=== PATIENT | female | born 1975 | race Caucasian/White ===

== ENCOUNTER 2020-07-25 14:17 | Inpatient (IN) | payer BC ==
[~2020-07-25] VITALS: Ht 154.9 cm; Wt 61.2 kg
[~2020-07-25 14:17] MED LIST: FLO4 PO; HYDROCODONE/ACE1 TA2 PO; LAC PO; MAC100 PO
[2020-07-25 14:30] VITALS: Ht 154.9 cm; Wt 61.2 kg
[2020-07-25 16:51] LABS: CALCIUM 9.9 mg/dL (8.5-10.1); CARBON DIOXIDE 25.8 mmol/L (21-32); CHLORIDE SERUM 102 mmol/L (98-107); CREATININE SERUM 0.8 mg/dL (0.6-1.0); GFR1 > 60 mL/min; GLUCOSE SERUM 101 mg/dL (74-106); POTASSIUM SERUM 4.2 mmol/L (3.5-5.1); SODIUM SERUM 138 mmol/L (136-145)
[2020-07-25 16:52] LABS: BASOPHIL % 0.2 % (0-2); PLATELET COUNT 338 x10^3mcL (130-400); RED CELL DISTRIBUTION WIDTH 12.3 % (11.5-14.5)
[2020-07-25 16:57] LABS: ALBUMIN 3.6 g/dL (3.4-5.0); ALKALINE PHOSPHATASE 125 U/L (46-116); ALT/SGPT 70 U/L (14-59); AST/SGOT 34 U/L (15-37); BILIRUBIN TOTAL 0.2 mg/dL (0.20-1.00); TOTAL PROTEIN, SERUM 8.2 g/dL (6.4-8.2)
--- NOTE | 2020-07-25 18:30 | NUR ---
PT REPORTING PRESSURE LIKE PELVIC PAIN SINCE YESTERDAY AFTERNOON, INCREASE PAIN WITH MOVEMENT AND WALKING. PT DENIES VAGINAL BLEEDING OR DISCHARGE. STATES SHE IS NAUSEATED WHEN THE PAIN COMES. AND DENIES FEVER BUT STATES SHE IS HAVING PAIN WITH URINATION AND FREQUNECY. PT IN POC AND I WILL CONTINUE TO MONITOR.
--- NOTE | 2020-07-25 18:40 | NUR ---
US AT BEDSIDE. PT MEDICATED PER ORDER.
--- NOTE | 2020-07-25 19:15 | NUR ---
REPORT RECEIVED BY TRICIA ZARAGOZA TO ASSUME CARE OF PT.
--- NOTE | 2020-07-25 20:12 | NUR ---
PT MEDICATED WITH NS PER MD ORDER. PT VERBALIZED UNDERSTANDING OF MEDICATION PRIOR TO ADMINISTRATION. CALL LIGHT IN REACH. PT IS AA&OX4, RESP E/U, NAD NOTED. COMPLAINING OF NO PAIN AT THIS TIME.
--- NOTE | 2020-07-25 21:18 | NUR ---
PT RESTING IN GURNEY, CALL LIGHT IN REACH, RESP E/U, NAD NOTED, COMPLAINING OF NO PAIN AT THIS TIME.
--- NOTE | 2020-07-25 22:53 | NUR ---
CHAPERONED DR VIRGEN WITH PELVIC EXAM. PT TOLERATED WELL. PT RESTING IN GURNEY, AA&OX4, RESP E/U, NAD NOTED. CALL LIGHT IN REACH.
--- NOTE | 2020-07-25 23:17 | NUR ---
PT MEDICATED PER MD ORDER. PT VERBALIZED UNDERSTANDING OF MEDICATION PRIOR TO ADMINISTRATION. CALL LIGHT IN REACH.
--- NOTE | 2020-07-25 23:37 | NUR ---
XRAY AT BEDSIDE.
--- NOTE | 2020-07-26 00:05 | NUR ---
PT DENIES ANY HOME MEDICATIONS.
--- NOTE | 2020-07-26 00:05 | NUR ---
PT MEDICATED PER MD ORDER. PT VERBALIZED UNDERSTANDING OF MEDICATION PRIOR TO ADMINISTRATION. CALL LIGHT IN REACH. PT IS AA&OX4, RESP E/U.
--- NOTE | 2020-07-26 00:30 | NUR ---
PATIENT REPORTING NAUSEA, NO ACTIVE VOMITING NOTED.
[2020-07-26 00:43] LABS: AMYLASE 54 U/L (25-115); LIPASE 73 IU/L (73-393)
--- NOTE | 2020-07-26 01:22 | NUR ---
PT AMBULATED TO RESTROOM WITH STEADY GAIT AT THIS TIME. RESP E/U.
--- NOTE | 2020-07-26 04:03 | NUR ---
PATIENT RESTING IN GURNEY, RESP E/U, AAOX4, NAD NOTED. CALL LIGHT IN REACH.
--- NOTE | 2020-07-26 05:11 | NUR ---
PT AMBULATED TO RESTROOM AND BACK WITH STEADY GAIT, COMPLAINING OF NO PAIN, AA&OX4, RESP E/U, NAD NOTED.
[2020-07-26 06:42] LABS: BASOPHIL % 0.1 % (0-2); CARBON DIOXIDE 26.2 mmol/L (21-32); CHLORIDE SERUM 107 mmol/L (98-107); CREATININE SERUM 0.6 mg/dL (0.6-1.0); GFR1 > 60 mL/min; GLUCOSE SERUM 91 mg/dL (74-106); MAGNESIUM 2.3 mg/dL (1.8-2.4); PHOSPHOROUS 2.7 mg/dL (2.5-4.9); PLATELET COUNT 310 x10^3mcL (130-400); POTASSIUM SERUM 4.8 mmol/L (3.5-5.1); RED CELL DISTRIBUTION WIDTH 12.4 % (11.5-14.5); SODIUM SERUM 138 mmol/L (136-145)
--- NOTE | 2020-07-26 06:43 | NUR ---
PT RESTING IN DANYEL [facility]IE&WILL, RESP E/U.
[2020-07-26 06:50] LABS: microscopic required? YES; urine erythrocyte 2+ (NEGATIVE)
--- NOTE | 2020-07-26 07:12 | NUR ---
RECEIVED REPORT FORM AZIZA ZARAGOZA, I WILL ASSUME FURTHER CARE OF THIS PATIENT.
--- NOTE | 2020-07-26 07:30 | NUR ---
PT IN POSITION OF COMFORT LAYING IN ER [facility]. PT REPORTED "IM NOT IN PAIN I JUST HAVE SOME CRAMPING HERE AND THERE." PT IS AAOX4, NO DISTRESS NOTED, RESP E/U. SKIN INTACT PINK WARM AND DRY. PT HAS NS 0.9% NO ADDS INFUSING AT 150ML/HR AT THIS TIME. IV IS PATENT, NO INFILTRATION OR PAIN NOTED TO IV SITE. WILL CONT TO MONITOR.
--- NOTE | 2020-07-26 08:21 | NUR ---
ATTEMPTED TO CALL REPORT TO SHLOMO ON TELE UNIT, NOT AVAILBLE PER MT WILL HAVE HER CALL BACK
--- NOTE | 2020-07-26 08:42 | NUR ---
REPORT GIVEN TO SHLOMO RN ON TELE UNIT FOR CONTINUITY OF CARE.
--- NOTE | 2020-07-26 09:30 | NUR ---
RECEIVED REPORT FROM ER NURSE AHSAN. PATIENT ARRIVED TO UNIT VIA GURNEY, ACCOMPANIED BY NURSE. PATIENT IS AAO TIMES 4. SPEECH CLEAR. MED-SURG. RESPIRATIONS EVEN AND UL ON RA. LUNGS CTAB. BS ACTIVE x4, SOFT AND NON-TENDER. DENIES N/V/D. DENIES PAIN AT THIS TIME, BUT C/O INTERMITTENT CRAMPS TO RLQ. VOIDS FREELY. AMBULATORY WITHOUT ASSISTANCE. SKIN CDI. NS INFUSING AT 100ML/HR TO LAC, SITE INTACT AND PATENT, NO SWELLING OR ERYTHEMA AT SITE. BED IN LOWEST POSITION, CALL LIGHT IN REACH, SAFETY MEASURES IN PLACE.
[2020-07-26 12:22] VITALS: BP 125/73
[2020-07-26 12:56] VITALS: BP 110/66
[2020-07-26 13:11] LABS: AMPHETAMINE QUAL UR NONE DETECTED (See below)
--- NOTE | 2020-07-26 14:22 | NUR ---
PATIENT RESTING IN BED, RESPIRATIONS EVEN AND UL ON RA. DENIES PAIN AT THIS TIME. NS INFUSING AT 60ML/HR TO LAC PER ORDER. BED IN LOWEST POSITION, CALL LIGHT IN REACH, SAFETY MEASURES IN PLACE.
[2020-07-26 17:00] VITALS: BP 115/74
--- NOTE | 2020-07-26 18:27 | NUR ---
PATIENT RESTING IN BED, EATING DINNER. RESPIRATIONS EVEN AND UL ON RA. DENIES PAIN. NO ACUTE CHANGES THROUGHOUT SHIFT. NS INFUSING TO LAC AT 60ML/HR, SITE INTACT AND PATENT. BED IN LOW POSITION, CALL LIGHT IN REACH, SAFETY MEASURES IN PLACE. WILL CONT TO MONITOR AND ENDORSE TO COPING MACHINE ASSEMBLER NURSE.
--- NOTE | 2020-07-26 20:00 | NUR ---
PT A/A/O X4. DENIES DIZZINESS AND HEADACHE. BREATH SOUNDS CLEAR. BREATHING EVEN AND UNLABORED ON ROOM AIR. DENIES CHEST PAIN AND PRESSURE. BOWEL SOUNDS ACTIVE. NO C/O N/V AND ABD PAIN. IV INTACT ON THE LAC INFUSING WITH NS AT 100 ML/HR. MADE PT COMFORTABLE. PLACED CALL LIGHT WITH IN REACH. WILL CONTINUE TO MONITOR.
[2020-07-26 21:20] VITALS: BP 99/57
--- NOTE | 2020-07-27 00:39 | NUR ---
PT RESTING WITH EYES CLOSED. NO DISTRESS AND DISCOMFORT NOTED. WILL CONTINUE TO MONITOR.
[2020-07-27 05:07] VITALS: BP 98/59
--- NOTE | 2020-07-27 06:22 | NUR ---
PT QUIET AND RESTING. NO C/O PAIN THUS FAR. IV INTACT AND INFUSING ORDERED. MADE PT COMFORTABLE. WILL ENDORSE TO THE AM NURSE ACCORDINGLY.
[2020-07-27 07:48] LABS: CALCIUM 9.6 mg/dL (8.5-10.1); CARBON DIOXIDE 24.7 mmol/L (21-32); CHLORIDE SERUM 105 mmol/L (98-107); CREATININE SERUM 0.7 mg/dL (0.6-1.0); GFR1 > 60 mL/min; GLUCOSE SERUM 101 mg/dL (74-106); POTASSIUM SERUM 3.8 mmol/L (3.5-5.1); SODIUM SERUM 140 mmol/L (136-145)
[2020-07-27 08:00] LABS: BASOPHIL % 0.3 % (0-2); PLATELET COUNT 363 x10^3mcL (130-400)
[2020-07-27 08:23] LABS: RED CELL DISTRIBUTION WIDTH 11.3 % (11.5-14.5)
[2020-07-27 08:31] VITALS: BP 114/77
[2020-07-27] MEDS ORDERED: NORCO1 TA2 PO (08:59)
[2020-07-27 10:46] VITALS: BP 114/77
--- NOTE | 2020-07-27 10:46 | NUR ---
PATIENT IS 45 YEAR OLD FEMALE THAT WAS ADMITTED TO [facility] FOR RIGHT SALPINGITIS PATEITN IS PENDING STD RULE OUTS. CAITIE SOSA IS ON THE CASE RULING OUT AND TREATING ABDOMINAL PAIN. PATIENT TX IV (DOXYCYLINE/MEFOXIN) ALERT AND ORIENTED X4, NO S/S OF DISTRESS NOTED. PAIN NOTED. NO PAIN MEDICATIONS REQUESTED AT THIS TIME. IV INTACT AND PATENT RUNNING NS 60CC/HR.
--- NOTE | 2020-07-27 10:53 | NUR ---
DC ORDER PLACED, STILL PENDING STD LABRATORY ORDERS. PENDING DC INSTRUCTIONS I WILL INFORM PATIENT OF PLAN FOR THE DAY.
[2020-07-27] MEDS ORDERED: DOXYCYCLINE HY100 MG PO (12:34)
[2020-07-27 13:40] VITALS: BP 118/76
--- NOTE | 2020-07-27 13:49 | NUR ---
PATIENT DC SUMMARY COMPLETE, IV REMOVED. DC INSTRUCTIONS GIVEN. MEDICATIONS PRESRIBED AT DC. 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
== END 2020-07-27 13:50 | disposition home or self-care (01) | DRG 872 ==
LOC: ED 14:17 → DU 23:09 → MU 23:09 → DU 07-26 09:24 → MU 07-27 10:21
PROVIDERS: Emergency Medicine; ADMIT Internal Medicine; ATTEND Internal Medicine
DX: A41.9 Sepsis, unspecified organism (principal); N70.01 Acute salpingitis; Z20.828 Contact with and (suspected) exposure to other viral communicable diseases; N83.201 Unspecified ovarian cyst, right side; Z80.3 Family history of malignant neoplasm of breast
CPT/HCPCS: 87491; 87591; G0378; J0456; J0694; J0696; J2405; J3490; J7030; J7050; Q9967